=== PATIENT | male | born 2000 | race Caucasian/White ===

== ENCOUNTER 2019-03-09 06:41 | Emergency (ER) | payer SELFPAY ==
[~2019-03-09] VITALS: Ht 170.2 cm; Wt 90.7 kg
--- NOTE | 2019-03-09 06:42 | NUR ---
Patient to ER bed 8 to gown for evaluation. Side rails up. Report given to Baldo TRIVEDI.
[2019-03-09 06:45] VITALS: BP_SYST 112
--- NOTE | 2019-03-09 06:50 | NUR ---
Dr. Foster bedside for Pt eval
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
[2019-03-09] MEDS ORDERED: DIPH-TET-PERTUS Vaccine 0.5 ML VIAL (ADACEL) I.M. ONE (07:00)
[2019-03-09 07:42] VITALS: BP_SYST 112
--- NOTE | 2019-03-09 07:42 | NUR ---
Patient given written and verbal discharge instructions and verbalizes understanding. ER MD discussed with patient the results and treatment provided. Patient in stable condition. ID arm band removed. Rx of motrin, augemntin given. Patient educated on pain management and to follow up with PMD. Pain Scale 0/10. Opportunity for questions provided and answered. Medication side effect fact sheet provided.
== END 2019-03-09 07:42 ==
LOC: SED 06:41
DX: Z02.89 Encounter for other administrative examinations (principal); S80.211A Abrasion, right knee, initial encounter; S80.212A Abrasion, left knee, initial encounter; L03.011 Cellulitis of right finger; W18.39XA Other fall on same level, initial encounter; Y93.89 Activity, other specified; Y92.89 Other specified places as the place of occurrence of the external cause; Y99.8 Other external cause status
CPT/HCPCS: 90715; 99283

== ENCOUNTER 2020-01-27 21:09 | Emergency (ER) | payer OTHER ==
[~2020-01-27] VITALS: Ht 175.3 cm; Wt 106.6 kg
--- NOTE | 2020-01-27 21:15 | NUR ---
Patient to ER [facility] for evaluation. Side rails up.
[2020-01-27 21:19] VITALS: BP_SYST 126
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
--- NOTE | 2020-01-27 22:05 | NUR ---
ER Dr. Vigil at bedside examining patient.
[2020-01-27 23:05] VITALS: BP_SYST 128
--- NOTE | 2020-01-27 23:07 | NUR ---
Patient given written and verbal discharge instructions and verbalizes understanding. ER MD discussed with patient the results and treatment provided. Patient in stable condition. ID arm band removed. Patient educated on pain management and to follow up with PMD. Pain Scale 0/10. Opportunity for questions provided and answered. Medication side effect fact sheet provided.
== END 2020-01-27 23:05 ==
LOC: SED 21:09
DX: R07.9 Chest pain, unspecified (principal); R10.11 Right upper quadrant pain
CPT/HCPCS: 71045; 93005; 99283